=== PATIENT | male | born 1990 | race Caucasian/White ===

== ENCOUNTER 2016-09-25 16:21 | Emergency (ER) | payer OTHER ==
[2016-09-25 17:52] LABS: BASO % 0.3 % (0.2-1.2); EOS # 0.3 10_X3_uL (0.0-0.5); EOS % 4.3 % (0.8-7.0); GRAN # 3.1 10_X3_uL (1.8-5.4); HEMATOCRIT 46.6 % (40-51); HEMOGLOBIN 15.8 g/dL (13.7-17.5); LYMPH # 2.1 10_X3_uL (1.3-3.6); LYMPH % 34.9 % (21.8-53.1); MEAN CORPUSCULAR HEMOGLOBIN 32.2 pg (27.0-33.0); MEAN CORPUSCULAR HGB CONC 33.9 g/dL (32.0-36.0); MEAN CORPUSCULAR VOLUME 94.9 fL (79-92); MEAN PLATELET VOLUME 9.4 fl (7.5-11.5); MONO # 0.5 10_X3_uL (0.3-0.8); MONO % 8.5 % (5.3-12.2); PLATELET COUNT 178 x10_3/uL (163-337); RED BLOOD COUNT 4.91 x10_6/uL (4.6-6.1); RED CELL DISTRIBUTION WIDTH 13.5 % (11.6-14.4); WHITE BLOOD COUNT 5.9 x10_3/uL (4.2-9.1)
[2016-09-25 18:05] LABS: BLOOD UREA NITROGEN 15 mg/dL (7-18); CALCIUM 9.4 mg/dL (8.7-10.7); CARBON DIOXIDE 29 mmol/L (21-32); CREATININE 0.8 mg/dL (0.6-1.3); GLUCOSE,RANDOM 87 mg/dL (70-99); POTASSIUM 4.8 mmol/L (3.5-5.1); SODIUM 136 mmol/L (136-145)
[2016-09-25 18:45] LABS: FREE T4 1.25 ng/dL (0.93-1.7); THYROID STIMULATING HORMONE 1.69 uIU/mL (0.34-4.82)
== END 2016-09-25 19:18 | disposition home or self-care (01) ==
LOC: ER 16:21
PROVIDERS: Emergency Medicine
DX: F41.9 Anxiety disorder, unspecified (principal); R06.4 Hyperventilation; F17.210 Nicotine dependence, cigarettes, uncomplicated
CPT/HCPCS: 36415; 80048; 84439; 84443; 85025; 99283

== ENCOUNTER 2016-10-30 00:06 | Emergency (ER) | payer OTHER | END 2016-10-30 01:17 | disposition home or self-care (01) | LOC: ER 00:06 | DX: T18.9XXA Foreign body of alimentary tract, part unspecified, initial encounter (principal) | CPT/HCPCS: 71010; 74000; 99283 ==